=== PATIENT | female | born 1955 | race Caucasian/White ===

== ENCOUNTER → 2016-11-07 | Outpatient (CLI) | payer BC | END | disposition home or self-care (01) | LOC: RAD.S 13:50 | DX: R60.9 Edema, unspecified (principal) ==

== ENCOUNTER → 2016-12-11 | Outpatient (CLI) | payer BC | END | disposition home or self-care (01) | LOC: RAD.S 07:40 | DX: Z12.31 Encounter for screening mammogram for malignant neoplasm of breast (principal); N63 Unspecified lump in breast ==